=== PATIENT | female | born 1970 | race American Indian/Alaskan Native ===

== ENCOUNTER 2017-08-14 12:36 | Emergency (ER) | payer SELFPAY ==
[2017-08-14 12:51] VITALS: BP 170/88
== END 2017-08-14 14:00 | disposition left against medical advice (07) ==
LOC: ED 12:36
DX: M79.602 Pain in left arm (principal); Z53.21 Procedure and treatment not carried out due to patient leaving prior to being seen by health care provider

== ENCOUNTER 2017-08-17 16:55 | Emergency (ER) | payer BC ==
[2017-08-17 17:19] VITALS: BP 161/96
--- NOTE | 2017-08-17 17:33 | Emergency Department Report ---
Chief Complaint: Laceration/Recheck/Suture Stated Complaint: LEFT ARM PAIN Time Seen by Provider: 08/17/17 17:29 - HPI History of Present Illness: Patient here reports that she had laceration on 05/04/2015 for cut to her left wrist. She said she thinks is infected and the sutures came out without her removing it. She said the areas open. She reports that there is drainage coming from the site that has a slight odor. Left wrist pain is 7 out of 10 and throbbing per patient. She said the pain is also sharp and radiated into her hand. Denies any fever or chills. - ROS Review of Systems: All systems are negative unless stated in HPI above - Exam Vital Signs: Vital Signs 08/17/17 17:11 Temperature 98 F Pulse Rate 100 H Respiratory 18 Rate Blood Pressure 161/96 O2 Sat by Pulse 96 Oximetry Physical Exam: Gen.: This is a 47-year-old female well-nourished well-developed in no acute distress. Extremity: No clubbing or cyanosis. Swelling noted to left dorsal aspect of hand. + 2 Pulses radial and ulnar laterally. Patient with pain in opening and closing her hand, left. Tender to palpate the fingers on left hand. Skin: Noted dehisced wound to left wrist. Scant drainage noted. MSE screening note: Focused history and physical exam performed. Due to findings the following was ordered: ED Medical Decision Making - Medical Decision Making MDM: Patient screened by provider in triage area. Appropriate protocol initiated and patient to be seen in main ED by provider ED Disposition for MSE Condition: Stable
[2017-08-17 18:17] LABS: Basophils % (Auto) 1.1 % (0.0-1.8); Eosinophils % (Auto) 1.1 % (0.0-4.3); Hematocrit 38.1 % (30.3-42.9); Hemoglobin 12.4 gm/dl (10.1-14.3); Mean Corpuscular HGB Conc 33 % (30-34); Mean Corpuscular Hemoglobin 30 pg (28-32); Mean Corpuscular Volume 92 fl (79-97); Platelet Count 292 K/mm3 (140-440); Red Blood Count 4.14 M/mm3 (3.65-5.03); Red Cell Distribution Width 18.5 % (13.2-15.2); White Blood Count 6.7 K/mm3 (4.5-11.0)
--- NOTE | 2017-08-17 18:35 | Emergency Department Report ---
HPI - General Chief Complaint: Wound/Laceration Time Seen by Provider: 08/17/17 17:29 - HPI HPI: Patient is a 57-year-old female presents to ED complaining of left wrist wound infection. Patient states she was here last week Thursday on 08/08/2017 with a laceration that was repaired here. Patient states the next day 1 stitches came out and the rest of the stitches came out 5 days ago without her knowledge. Patient states since Thursday the laceration has been draining some extent. Patient states wrist pain at laceration site. She denies any other new injuries, bleeding, Fever/chills/nausea/vomiting ED Past Medical Hx - Past Medical History Hx Hypertension: No Hx Psychiatric Treatment: Yes (Depression) Additional medical history: ETOH abuse - Surgical History Past Surgical History?: No - Social History Smoking Status: Never Smoker Substance Use Type: None - Medications Home Medications: Home Medications Medication Instructions Recorded Confirmed Last Taken Type Famotidine [Pepcid] 20 mg PO BID #60 tablet 04/23/15 Unknown Rx Promethazine [Phenergan] 25 mg PO Q6H PRN #10 tablet 04/23/15 Unknown Rx traMADol [Ultram] 50 mg PO Q6HR PRN #12 tablet 04/23/15 Unknown Rx Ondansetron [Zofran Odt] 4 mg PO Q6HR PRN #20 tab.rapdis 05/04/15 Unknown Rx Ranitidine HCl [Zantac 150 MG TAB] 150 mg PO BID #60 tablet 05/04/15 Unknown Rx Cephalexin [Keflex] 500 mg PO BID #14 capsule 08/17/17 Unknown Rx Ibuprofen [Motrin 800 MG tab] 800 mg PO Q8H #20 tablet 08/17/17 Unknown Rx ED Review of Systems ROS: Stated complaint: LEFT ARM PAIN Other details as noted in HPI Constitutional: denies: chills, fever Eyes: denies: eye pain, eye discharge, vision change ENT: denies: ear pain, throat pain Respiratory: denies: cough, shortness of breath, wheezing Cardiovascular: denies: chest pain, palpitations Endocrine: no symptoms reported Gastrointestinal: denies: abdominal pain, nausea, diarrhea Genitourinary: denies: urgency, dysuria, discharge Musculoskeletal: denies: back pain, joint swelling, arthralgia Skin: denies: rash, lesions Neurological: denies: headache, weakness, paresthesias Psychiatric: denies: anxiety, depression Hematological/Lymphatic: denies: easy bleeding, easy bruising Physical Exam - Physical Exam Vital Signs: Vital Signs 08/17/17 17:11 Temperature 98 F Pulse Rate 100 H Respiratory 18 Rate Blood Pressure 161/96 O2 Sat by Pulse 96 Oximetry Physical Exam: GENERAL: Alert and oriented x3, no apparent distress, Normal Gait, atraumatic. HEAD: Head is normocephalic and a-traumatic. EYES: Extra ocular muscles are intact. Pupils are equal, round, and reactive to light and accommodation. EARS: symetrical, atraumatic, non tender, ear canal clear and moderate cerumen, tympanic membrance non inflamed. gross auditory nml bilaterally. NOSE: Nose symetrical, Nontender,Nares appeared normal. MOUTH:Mouth is well hydrated and without lesions. Tonsils nonerythematous or swollen, Uvula midline, Tongue not elevated. Mucous membranes are moist. Posterior pharynx clear, no exudate or lesions. Patent airways. NECK: Supple. Non edematous, No carotid bruits. No lymphadenopathy or thyromegaly. No C-spine tenderness LUNGS: Symetrical with respiration, No wheezing, no rales or crackles, CTAB. HEART: S1, S2 present, regular rate and rhythm without murmur, no rubs, no gallops. Non tender to palpation EXTREMITIES/MUSCULOSKELETAL: No cyanosis, clubbing, rash, lesions or edema. Full ROM bilaterally. UE Pulses 2+ bilaterally. UE 5+ strength bilaterally, left wrist 5-6 cm laceration, moderately healed NEUROLOGIC: The patient is cooperative with no focal neurologic deficits. Cranial nerves II through XII are grossly intact. Normal speech. Normal sensation in bilateral upper and lower extremities, No loss of sensation, PSYCHIATRIC: Mood is congruent with affect, denies suicidal or homicidal ideations. SKIN: Warm and dry, No lesions, No ulceration or induration present. ED Course Vital Signs 08/17/17 17:11 Temperature 98 F Pulse Rate 100 H Respiratory 18 Rate Blood Pressure 161/96 O2 Sat by Pulse 96 Oximetry ED Medical Decision Making - Lab Data Result diagrams: 08/17/17 18:00 - Medical Decision Making 47-year-old female presents with laceration of the wrist wound check ED course: Patient received clindamycin 150 mg pain Med in the ED. CBC, shows no elevated white count, test negative Discussed this findings with the patient. Discussed patient to keep wound clean and dry and should bodies applied 3 times a day. Patient's wound was cleaned, antibiotic applied and sterilely wrapped with gauze. Discussed follow-up with primary care physician in 3 days for another wound check. Discussed with the patient that if new symptoms or worsening symptoms to return to ED Critical care attestation.: If time is entered above; I have spent that time in minutes in the direct care of this critically ill patient, excluding procedure time. ED Disposition Clinical Impression: Encounter for re-check of laceration wound Disposition: DC- TO HOME OR SELFCARE Is pt being admited?: No Does the pt Need Aspirin: No Condition: Stable Instructions: Acute Wound Care (ED), Abrasion (ED) Prescriptions: Cephalexin [Keflex] 500 mg PO BID #14 capsule Ibuprofen [Motrin 800 MG tab] 800 mg PO Q8H #20 tablet Referrals: PRIMARY CAREMD [Primary Care Provider] - 3-5 Days MORENO ESTEABN MD [Referring] - 3-5 Days [facility] [Outside] - 3-5 Days [facility] [Outside] - 3-5 Days [facility] [Outside] - 3-5 Days Forms: Accompanied Note, Work/School Release Form(ED) Time of Disposition: 19:26
[2017-08-17] MEDS ORDERED: MOTRIN PO ONE (19:19)
[2017-08-17] MEDS ORDERED: CLEOCIN IM ONE (19:19)
[2017-08-17] MEDS ORDERED: TRIPLE ANTIBIOTIC TP ONE (19:27)
--- NOTE | 2017-08-17 20:25 | XRay Report ---
FINAL REPORT EXAM: XR WRIST 3+V LT HISTORY: Infection left wrist with restricted movement TECHNIQUE: Three views of the left wrist PRIORS: None. FINDINGS: The bones are normally aligned and mineralized. The joint spaces are well-preserved. There is no evidence of acute fracture. The soft tissues are unremarkable. IMPRESSION: No evidence of acute fracture or subluxation.
--- NOTE | 2017-08-17 21:33 | XRay Report ---
FINAL REPORT EXAM: XR HAND 3+V LT HISTORY: swelling and redness left hand TECHNIQUE: Three views of the left hand PRIORS: None. FINDINGS: The bones are normally aligned and mineralized. The joint spaces are well-preserved. There is no evidence of acute fracture. The soft tissues are unremarkable. IMPRESSION: No evidence of acute fracture or subluxation.
== END 2017-08-17 19:55 | disposition home or self-care (01) ==
LOC: ED 16:55
DX: S61.512D Laceration without foreign body of left wrist, subsequent encounter (principal); L08.89 Other specified local infections of the skin and subcutaneous tissue; F32.9 Major depressive disorder, single episode, unspecified
CPT/HCPCS: 36415; 84703; 85025; 96372; A6250

== ENCOUNTER 2018-05-11 15:58 | Inpatient (IN) | payer BC, OTHER ==
[2018-05-11 16:44] LABS: Basophils # (Auto) 0.1 K/mm3 (0.0-0.1); Basophils % (Auto) 1.7 % (0.0-1.8); Hematocrit 38.6 % (30.3-42.9); Hemoglobin 13.4 gm/dl (10.1-14.3); Lymphocytes # (Auto) 1.4 K/mm3 (1.2-5.4); Lymphocytes % (Auto) 30.5 % (13.4-35.0); Mean Corpuscular HGB Conc 35 % (30-34); Mean Corpuscular Hemoglobin 36 pg (28-32); Mean Corpuscular Volume 104 fl (79-97); Monocytes # (Auto) 0.6 K/mm3 (0.0-0.8); Monocytes % (Auto) 12.4 % (0.0-7.3); Platelet Count 329 K/mm3 (140-440); Red Blood Count 3.71 M/mm3 (3.65-5.03); Red Cell Distribution Width 15.6 % (13.2-15.2)
[2018-05-11 17:00] LABS: BUN/Creatinine Ratio 32; Blood Urea Nitrogen 16 mg/dL (7-17); Calcium 9.8 mg/dL (8.4-10.2); Hemolysis Index 23
[2018-05-11] MEDS ORDERED: VITAMIN B-1 100 MG, FOLVITE 1 MG, INFUVITE 10 ML in NACL 0.9% 1000 ML 1,000 ML IV ONE (21:01)
--- NOTE | 2018-05-11 21:19 | Emergency Department Report ---
HPI - General Chief Complaint: Psych Time Seen by Provider: 05/11/18 21:01 - HPI HPI: 47-year-old female presents to the emergency department from the mobile crisis unit after she called them regarding feeling sad and depressed. Patient does say that she has some "manic depression" but never has been diagnosed with bipolar disorder. She has not been on any medications for this for many years. She states that she mostly just wants to stay in bed and sleep. She does have history of some alcohol abuse and denies any heavy drinking but does have some alcohol on board at this time. She denies any illicit drugs. She denies any auditory or visual hallucinations. She denies any current suicidal or homicidal ideations. Patient has been feeling depressed because she says that there has been some problems with her residence including malfunctioning air-conditioning. She says that when she complains to the labor utilization superintendent that they still request her rent, say they are fixing it, and threatened to kick her out. More recently the patient has noticed some mold. She's been dealing with a recent cough that is mixed dry and productive. She denies any fever, chest pain, shortness of breath. She does have a medical history of hypertension. ED Past Medical Hx - Past Medical History Previous Medical History?: Yes Hx Hypertension: Yes Hx Psychiatric Treatment: Yes (Depression) Additional medical history: ETOH abuse - Social History Smoking Status: Never Smoker Substance Use Type: Alcohol - Medications Home Medications: Home Medications Medication Instructions Recorded Confirmed Last Taken Type Famotidine [Pepcid] 20 mg PO BID #60 tablet 04/23/15 05/11/18 Unknown Rx Promethazine [Phenergan] 25 mg PO Q6H PRN #10 tablet 04/23/15 05/11/18 Unknown Rx traMADol [Ultram] 50 mg PO Q6HR PRN #12 tablet 04/23/15 05/11/18 Unknown Rx Ondansetron [Zofran Odt] 4 mg PO Q6HR PRN #20 tab.rapdis 05/04/15 05/11/18 Unknown Rx Ranitidine HCl [Zantac 150 MG TAB] 150 mg PO BID #60 tablet 05/04/15 05/11/18 Unknown Rx Cephalexin [Keflex] 500 mg PO BID #14 capsule 08/17/17 05/11/18 Unknown Rx Ibuprofen [Motrin 800 MG tab] 800 mg PO Q8H #20 tablet 08/17/17 05/11/18 Unknown Rx ED Review of Systems ROS: Stated complaint: SUICIDAL Other details as noted in HPI Comment: All other systems reviewed and negative Constitutional: denies: chills, fever Eyes: denies: eye pain, eye discharge, vision change ENT: denies: ear pain, throat pain Respiratory: cough. denies: shortness of breath Cardiovascular: denies: chest pain, palpitations Gastrointestinal: denies: abdominal pain, nausea, diarrhea Genitourinary: denies: urgency, dysuria, discharge Musculoskeletal: denies: back pain, joint swelling, arthralgia Skin: denies: rash, lesions Neurological: denies: headache, weakness, paresthesias Psychiatric: depression. denies: auditory hallucinations, visual hallucinations , homicidal thoughts, suicidal thoughts Physical Exam - Physical Exam Vital Signs: Vital Signs 05/11/18 16:06 Temperature 98.7 F Pulse Rate 112 H Respiratory 16 Rate Blood Pressure 160/97 O2 Sat by Pulse 98 Oximetry Physical Exam: GENERAL: The patient is well-developed well-nourished. HENT: Normocephalic. Atraumatic. Patient has moist mucous membranes. EYES: Extraocular motions are intact. Pupils equal reactive to light bilaterally. NECK: Supple. Trachea is midline. CHEST/LUNGS: Clear to auscultation. There is no respiratory distress noted. HEART/CARDIOVASCULAR: Regular. There is mild tachycardia. There is no murmur. ABDOMEN: Abdomen is soft, nontender. Patient has normal bowel sounds. There is no abdominal distention. SKIN: Skin is warm and dry. NEURO: The patient is awake, alert, and oriented. The patient is cooperative. The patient has no focal neurologic deficits. The patient has normal speech. Patient has distal bilateral upper extremity tremors. MUSCULOSKELETAL: There is no tenderness or deformity. There is no evidence of acute injury. ED Course Vital Signs 05/11/18 16:06 Temperature 98.7 F Pulse Rate 112 H Respiratory 16 Rate Blood Pressure 160/97 O2 Sat by Pulse 98 Oximetry ED Medical Decision Making - Lab Data Result diagrams: 05/11/18 16:21 05/11/18 16:21 - Radiology Data Radiology results: image reviewed interpreted by me: Chest x-ray does not show any acute process. There are no pleural effusions, obvious pneumonia and there is no pneumothorax. - Medical Decision Making Patient came in for a mental health evaluation and she's been dealing with some depression. She does not have any hallucinations or any suicidal or homicidal ideations. She is calm and appropriate with a normal decision making capacity. She does not appear to be a candidate to be made a 1013 for inpatient psychiatric treatment. She was seen by the psych assessment team who agrees and has provided outpatient resources regarding her psychiatric care. However the patient did have an alcohol level of 0.014 at about 6 PM this evening. She does have some history of alcohol abuse and admits that she has been drinking over the past few weeks since "my depression worsened." Patient had some mild tachycardia upon presentation and despite getting some IV fluid and a banana bag the tachycardia increased. Patient started having some distal bilateral upper extremity tremors. At this point the alcohol withdrawal assessment was placed on the patient and she had a score of 16, requiring 4 mg of Ativan. For this reason, with concern for moderate alcohol withdrawal, the patient will be admitted to the hospital for further evaluation and treatment and was accepted for admission by the hospitalist, Dr. Bernabe. - Differential Diagnosis alcohol withdrawal, depression, bipolar disorder, anxiety Critical Care Time: No Critical care attestation.: If time is entered above; I have spent that time in minutes in the direct care of this critically ill patient, excluding procedure time. ED Disposition Clinical Impression: Hypertension Qualifiers: Hypertension type: essential hypertension Qualified Code(s): I10 - Essential ( primary) hypertension Alcohol withdrawal Qualifiers: Complication of substance-induced condition: with unspecified complication Qualified Code(s): F10.239 - Alcohol dependence with withdrawal, unspecified Depression Qualifiers: Depression Type: unspecified Qualified Code(s): F32.9 - Major depressive disorder, single episode, unspecified Disposition: 09 OP ADMIT IP TO THIS HOSP Is pt being admited?: Yes Condition: Stable Instructions: Hypertension (ED) Referrals: PRIMARY CARE, [Primary Care Provider] - 3-5 Days Time of Disposition: 00:54
--- NOTE | 2018-05-11 21:46 | XRay Report ---
FINAL REPORT PROCEDURE: XR CHEST ROUTINE 2V TECHNIQUE: PA and lateral chest radiographs were obtained. CPT 58080 HISTORY: cough COMPARISON: No prior studies are available for comparison. FINDINGS: Heart: Normal. Mediastinum/Vessels: Normal. Lungs/Pleural space: There is mild elevation of right hemidiaphragm.. Bony thorax: No acute osseous abnormality. Other: IMPRESSION: No acute pulmonary process..
[2018-05-11] MEDS ORDERED: ZOFRAN ONE (22:02)
[2018-05-11] MEDS ORDERED: ZOFRAN IV ONE (22:12)
[2018-05-11 23:16] LABS: Bacteria,Urine 1+ /HPF (Negative); Bilirubin,Urine NEG (Negative); Blood,Urine NEG (Negative); Color,Urine Amber (Yellow); Hyaline Casts,Urine 3 /LPF; Mucus,Urine 3+ /HPF
[2018-05-11 23:23] LABS: Amphetamine Screen,Urine PRESUMPTIVE NEGATIVE; Benzodiazepines Screen,Urine PRESUMPTIVE NEGATIVE; Cannabinoid Screen,Urine PRESUMPTIVE NEGATIVE; Cocaine Screen,Urine PRESUMPTIVE NEGATIVE; Methadone Screen,Urine PRESUMPTIVE NEGATIVE; Opiate Screen,Urine PRESUMPTIVE NEGATIVE
[2018-05-12] MEDS ORDERED: ATIVAN PO PRN (00:13)
[2018-05-12] MEDS ORDERED: ATIVAN IV PRN (00:13)
[2018-05-12] MEDS ORDERED: SODIUM CHLORIDE FLUSH SYRINGE 10 ML IV PRN (00:48)
[2018-05-12] MEDS ORDERED: TYLENOL PO PRN (00:48)
--- NOTE | 2018-05-12 00:52 | History and Physical Report ---
History of Present Illness Date of examination: 05/12/18 History of present illness: 47-year-old man with a no medical history comes to the emergency room complaining of feeling sad and depressed. Patient has been having problems where she lives. She stated that they don't treat her right, her if condition doesn't work, she complains about 8 and a threatened to evict her. Although last week she has been drinking heavily, she stopped working. She has no homicidal or suicidal ideation. In the emergency room she was found to be in withdrawal from alcohol Review of systems Constitutional: no weight loss, chills, fever Ears, eyes, nose, mouth and throat: no nasal congestion, no nasal discharge, no sinus pressure, no vision change, no red eye. Neck: No neck pain or rigidity. Cardiovascular: no chest pain, palpitations Respiratory: no cough,shortness of breath Gastrointestinal: no abdominal pain hematochezia Genitourinary : no frequency , no hematuria Musculoskeletal: no joint swelling or muscle ache Integumentary: no rash, no pruritis Neurological: no parathesias, no numbness, no focal weakness Endocrine: no cold or heat intolerance, no polyuria or polydipsia Hematologic/Lymphatic: no easy bruising, no easy bleeding, no gland swelling Allergic/Immunologic: no urticaria, no angioedema. PAST MEDICAL HISTORY: Depression, hypertension PAST SURGICAL HISTORY: None SOCIAL HISTORY: No drugs, tobacco, drinks alot of alcohol FAMILY HISTORY: Hypertension Medications and Allergies Allergies Allergy/AdvReac Type Severity Reaction Status Date / Time No Known Allergies Allergy Verified 05/11/18 16:06 Home Medications Medication Instructions Recorded Confirmed Last Taken Type Famotidine [Pepcid] 20 mg PO BID #60 tablet 04/23/15 05/11/18 Unknown Rx Promethazine [Phenergan] 25 mg PO Q6H PRN #10 tablet 04/23/15 05/11/18 Unknown Rx traMADol [Ultram] 50 mg PO Q6HR PRN #12 tablet 04/23/15 05/11/18 Unknown Rx Ondansetron [Zofran Odt] 4 mg PO Q6HR PRN #20 tab.rapdis 05/04/15 05/11/18 Unknown Rx Ranitidine HCl [Zantac 150 MG TAB] 150 mg PO BID #60 tablet 05/04/15 05/11/18 Unknown Rx Cephalexin [Keflex] 500 mg PO BID #14 capsule 08/17/17 05/11/18 Unknown Rx Ibuprofen [Motrin 800 MG tab] 800 mg PO Q8H #20 tablet 08/17/17 05/11/18 Unknown Rx Active Meds: Active Medications Thiamine HCl 100 mg/ Folic Acid 1 mg/ Multivitamins/Minerals 10 ml/ Sodium Chloride 1,011.2 mls @ 250 mls/hr IV ONCE ONE Stop: 05/12/18 01:03 Last Admin: 05/11/18 22:00 Dose: 250 mls/hr Lorazepam (Ativan) 2 mg PO Q1HR PRN PRN Reason: CIWA-Ar 8-15 Lorazepam (Ativan) 4 mg PO Q1HR PRN PRN Reason: CIWA-Ar 16-25 Lorazepam (Ativan) 4 mg IV Q15MIN PRN PRN Reason: CIWA-Ar >25 Exam - Physical Exam Narrative exam: Gen. appearance: Patient lying in bed, no apparent distress HEENT: Normocephalic, atraumatic, pupils equally round and reactive to light, extraocular movement intact, and no sclericterus,. No JVD or thyromegaly or nodule,neck supple, no carotid bruit ,mucous membranes moist, no exudate or erythema Heart: S1, S2, regular rate and rhythm Lungs: Clear to auscultation bilaterally, breathing comfortable Abdomen: Positive bowel sounds, non tenderness , nondistended, no organomegaly Extremity: No edema, cyanosis, clubbing Skin: No rash, nodules, warm, dry Neuro: Oriented 3, cranial nerves II-12 intact, speech is fluent, motor and sensory intact - Constitutional Vitals: Temp Pulse Resp BP Pulse Ox 98 F 133 H 24 156/96 99 05/11/18 23:22 05/11/18 23:22 05/11/18 23:22 05/11/18 23:22 05/11/18 23:22 Results - Labs CBC & Chem 7: 05/11/18 16:21 05/11/18 16:21 Labs: Abnormal lab results 05/11/18 05/11/18 05/11/18 Range/Units 16:21 16:21 16:21 MCV (79-97) fl MCH (28-32) pg MCHC (30-34) % RDW (13.2-15.2) % [place] % (Auto) (0.0-7.3) % Carbon Dioxide 19 L (22-30) mmol/L Creatinine 0.5 L (0.7-1.2) mg/dL Ur Specific [place] (1.003-1.030) U Epithel Cells (Auto) (0-13.0) /HPF Salicylates < 0.3 L (2.8-20.0) mg/dL Acetaminophen < 5.0 L (10.0-30.0) ug/mL Plasma/Serum Alcohol (0-0.07) % 05/11/18 05/11/18 05/11/18 Range/Units 16:21 16:21 21:12 MCV 104 H (79-97) fl MCH 36 H (28-32) pg MCHC 35 H (30-34) % RDW 15.6 H (13.2-15.2) % [place] % (Auto) 12.4 H (0.0-7.3) % Carbon Dioxide (22-30) mmol/L Creatinine (0.7-1.2) mg/dL Ur Specific [place] 1.031 H (1.003-1.030) U Epithel Cells (Auto) 21.0 H (0-13.0) /HPF Salicylates (2.8-20.0) mg/dL Acetaminophen (10.0-30.0) ug/mL Plasma/Serum Alcohol 0.12 H (0-0.07) % - Imaging and Cardiology Chest x-ray: report reviewed Assessment and Plan Assessment Alcohol withdrawal Depression Hypertension Plan Admit to medicine Start [facility] protocol with IV ativan, tjiamine, folate Consult psych DVT prophalaxis
--- NOTE | 2018-05-12 10:03 | Progress Note ---
Assessment and Plan Alcohol withdrawal Depression Hypertension Plan Start [facility] protocol with IV ativan, tjiamine, folate Consult psych DVT prophalaxis Subjective Date of service: 05/12/18 Principal diagnosis: alcohol withdrawal Interval history: Patient seen and examined. No chest pain or shortness of breath. No alteration in mental status. No overnight event reported. Objective - Exam Narrative Exam: Constitutional: Well-nourished well-developed. In no distress Head: Normocephalic atraumatic Eyes: Pupils are equal round and reactive to light Nose: No enlarged turbinates, no septal deviation. Mouth: Moist mucous membranes. Neck: Supple no thyromegaly. No bruit. No JVD Heart: Regular rate and rhythm, S1-S2 abnormal. No rubs murmurs or gallop Lungs: Clear to auscultation bilaterally no rales or rhonchi Abdomen: Soft, nontender. Bowel sound are present. Extremities: No edema no cyanosis and no clubbing. Neuro: Alert oriented Oriented x3. No focal sensory or motor deficit. Skin: No rashes no hyperemic spots Psychiatry: Euthymic. Calm. - Constitutional Vitals: Vital Signs - 12hr 05/11/18 05/11/18 05/11/18 22:47 22:49 23:22 Temperature 98.8 F 98.0 F 98 F Pulse Rate 132 H 133 H Respiratory 24 16 24 Rate Blood Pressure 154/96 134/65 Blood Pressure 156/96 [Right] O2 Sat by Pulse 99 99 Oximetry 05/12/18 05/12/18 05/12/18 01:14 02:44 02:45 Temperature Pulse Rate 115 H 120 H Respiratory 13 15 Rate Blood Pressure Blood Pressure 150/96 [Right] O2 Sat by Pulse Oximetry 05/12/18 05/12/18 05/12/18 02:52 03:00 03:16 Temperature Pulse Rate 117 H 116 H 117 H Respiratory 18 22 20 Rate Blood Pressure Blood Pressure 146/90 [Right] O2 Sat by Pulse Oximetry 05/12/18 05/12/18 05/12/18 03:30 03:46 04:00 Temperature Pulse Rate 115 H 115 H 112 H Respiratory 19 20 25 H Rate Blood Pressure Blood Pressure [Right] O2 Sat by Pulse Oximetry 05/12/18 05/12/18 05/12/18 04:16 04:30 04:46 Temperature Pulse Rate 104 H 108 H 103 H Respiratory 20 22 19 Rate Blood Pressure Blood Pressure [Right] O2 Sat by Pulse Oximetry 05/12/18 05/12/18 05/12/18 05:00 05:16 05:30 Temperature Pulse Rate 102 H 103 H 101 H Respiratory 20 19 18 Rate Blood Pressure Blood Pressure [Right] O2 Sat by Pulse Oximetry 05/12/18 05/12/18 05/12/18 05:46 06:00 06:16 Temperature Pulse Rate 103 H 102 H 104 H Respiratory 16 17 16 Rate Blood Pressure Blood Pressure [Right] O2 Sat by Pulse Oximetry 05/12/18 05/12/18 05/12/18 06:30 06:46 07:00 Temperature Pulse Rate 101 H 104 H 98 H Respiratory 19 20 16 Rate Blood Pressure Blood Pressure [Right] O2 Sat by Pulse Oximetry 05/12/18 05/12/18 05/12/18 07:10 07:16 07:30 Temperature 98.2 F Pulse Rate 91 H 101 H 97 H Respiratory 20 17 17 Rate Blood Pressure Blood Pressure 129/81 [Right] O2 Sat by Pulse 100 Oximetry 05/12/18 05/12/18 05/12/18 07:46 08:06 08:16 Temperature Pulse Rate 104 H 116 H 97 H Respiratory 18 21 17 Rate Blood Pressure Blood Pressure [Right] O2 Sat by Pulse Oximetry 05/12/18 08:30 Temperature Pulse Rate 95 H Respiratory 15 Rate Blood Pressure Blood Pressure [Right] O2 Sat by Pulse Oximetry - Labs CBC & Chem 7: 05/11/18 16:21 05/11/18 16:21 Labs: Abnormal lab results 05/11/18 05/11/18 05/11/18 Range/Units 16:21 16:21 16:21 MCV (79-97) fl MCH (28-32) pg MCHC (30-34) % RDW (13.2-15.2) % [place] % (Auto) (0.0-7.3) % Carbon Dioxide 19 L (22-30) mmol/L Creatinine 0.5 L (0.7-1.2) mg/dL Ur Specific [place] (1.003-1.030) U Epithel Cells (Auto) (0-13.0) /HPF Salicylates < 0.3 L (2.8-20.0) mg/dL Acetaminophen < 5.0 L (10.0-30.0) ug/mL Plasma/Serum Alcohol (0-0.07) % 05/11/18 05/11/18 05/11/18 Range/Units 16:21 16:21 21:12 MCV 104 H (79-97) fl MCH 36 H (28-32) pg MCHC 35 H (30-34) % RDW 15.6 H (13.2-15.2) % [place] % (Auto) 12.4 H (0.0-7.3) % Carbon Dioxide (22-30) mmol/L Creatinine (0.7-1.2) mg/dL Ur Specific [place] 1.031 H (1.003-1.030) U Epithel Cells (Auto) 21.0 H (0-13.0) /HPF Salicylates (2.8-20.0) mg/dL Acetaminophen (10.0-30.0) ug/mL Plasma/Serum Alcohol 0.12 H (0-0.07) %
[2018-05-12] MEDS: FOLVITE PO SCH (11:58)
[2018-05-12] MEDS: VITAMIN B-1 PO SCH (11:59)
[2018-05-12] MEDS: LOVENOX SUB-Q SCH (11:59)
[2018-05-12] MEDS: SODIUM CHLORIDE FLUSH SYRINGE 10 ML IV SCH ×2 (12:00→23:43)
[2018-05-12] MEDS ORDERED: NON-FORMULARY (Lisinopril 40 MG) PO SCH (20:30)
[2018-05-12] MEDS: ZESTRIL PO SCH (23:37)
[2018-05-12] MEDS: ATIVAN PO PRN (23:39)
[2018-05-13 06:50] LABS: Basophils % (Auto) 0.6 % (0.0-1.8); Eosinophils % (Auto) 1.3 % (0.0-4.3); Hematocrit 38.4 % (30.3-42.9); Hemoglobin 12.8 gm/dl (10.1-14.3); Lymphocytes # (Auto) 1.4 K/mm3 (1.2-5.4); Mean Corpuscular HGB Conc 33 % (30-34); Mean Corpuscular Hemoglobin 35 pg (28-32); Mean Corpuscular Volume 106 fl (79-97); Monocytes # (Auto) 0.3 K/mm3 (0.0-0.8); Monocytes % (Auto) 10.1 % (0.0-7.3); Platelet Count 214 K/mm3 (140-440); Red Blood Count 3.61 M/mm3 (3.65-5.03); Red Cell Distribution Width 15.4 % (13.2-15.2)
[2018-05-13 07:11] LABS: BUN/Creatinine Ratio 28; Blood Urea Nitrogen 11 mg/dL (7-17); Calcium 9.3 mg/dL (8.4-10.2); Hemolysis Index 6
--- NOTE | 2018-05-13 10:47 | Progress Note ---
Assessment and Plan Alcohol withdrawal [facility] protocol, IV ativan, thiamin and folate. Psych input appreciated Depression Psych input appreciated, SSRI Hypertension Optimize control with antihypertensive meds Hypomagnesemia-secondary to alcohol abuse -Will correct Hypokalemia secondary to hypomagnesemia from ETOH abuse Will replete Mg and K and monitor DVT prophylaxis with Lovenox Subjective Date of service: 05/13/18 Principal diagnosis: alcohol withdrawal Interval history: Patient seen and examined. No complaints. No overnight events. Laboratory tests reviewed. Objective - Constitutional Vitals: Vital Signs - 12hr 05/12/18 05/12/18 05/13/18 23:28 23:37 05:35 Temperature 98.7 F 98.3 F Pulse Rate 98 H 101 H 86 Respiratory 22 20 Rate Blood Pressure 176/88 176/88 149/91 O2 Sat by Pulse 96 100 Oximetry General appearance: Present: no acute distress, well-nourished - EENT Eyes: PERRL, EOM intact ENT: hearing intact, clear oral mucosa Ears: bilateral: normal - Neck Neck: supple, normal ROM - Respiratory Respiratory effort: normal Respiratory: bilateral: CTA - Breasts Breasts: deferred - Cardiovascular Rhythm: regular Heart Sounds: Present: S1 & S2. Absent: gallop, rub Extremities: pulses intact, No edema, normal color, Full ROM - Gastrointestinal General gastrointestinal: Present: soft, non-tender, non-distended, normal bowel sounds - Genitourinary Female genitourinary: deferred - Integumentary Integumentary: clear, warm, dry - Musculoskeletal Musculoskeletal: strength equal bilaterally - Neurologic Neurologic: moves all extremities - Psychiatric Psychiatric: appropriate mood/affect, cooperative - Labs CBC & Chem 7: 05/13/18 05:23 05/13/18 05:23 Labs: Abnormal lab results 05/13/18 05/13/18 Range/Units 05:23 05:23 WBC 3.2 L (4.5-11.0) K/mm3 RBC 3.61 L (3.65-5.03) M/mm3 MCV 106 H (79-97) fl MCH 35 H (28-32) pg RDW 15.4 H (13.2-15.2) % Lymph % (Auto) 42.0 H (13.4-35.0) % [place] % (Auto) 10.1 H (0.0-7.3) % Seg Neutrophils # 1.5 L (1.8-7.7) K/mm3 Potassium 3.2 L D (3.6-5.0) mmol/L Creatinine 0.4 L (0.7-1.2) mg/dL Magnesium 1.50 L (1.7-2.3) mg/dL
[2018-05-13] MEDS ORDERED: MAGNESIUM SULFATE 2GM/50ML 2 GM/50 ML BAG IV ONE (11:09)
[2018-05-13] MEDS ORDERED: MAGNESIUM SULFATE 2 GM in NACL 0.9% 50 ML IV ONE (12:00)
[2018-05-13] MEDS ORDERED: KCL 10MEQ/100ML 10 MEQ/100 ML BAG IV SCH (12:00)
--- NOTE | 2018-05-13 12:39 | Consultation ---
History of Present Illness - Reason for Consult Consult date: 05/13/18 Reason for consult: Mental Health Evaluation Requesting physician: FREDDY WESTON - Chief Complaint Chief complaint: "I do drink" - History of Present Psychiatric Illness 47-year-old female presents to the emergency department from the mobile crisis unit after she called them regarding feeling sad and depressed. Today the patient is calm, but confused during the assessment. She stated that her "biggest problem" is drinking (etoh). She stated drinking since age of "18 or so." She could not answer questions logically about being depressed or being dx with another Mood DO. She spoke briefly about some issue she is having at her residence. She did state that her drinking has increased the past few months. She denies SI/HI's and AVH's. She denies recreational drugs. Medications and Allergies Allergies Allergy/AdvReac Type Severity Reaction Status Date / Time No Known Allergies Allergy Verified 05/11/18 16:06 Home Medications Medication Instructions Recorded Confirmed Last Taken Type Famotidine [Pepcid] 20 mg PO BID #60 tablet 04/23/15 05/11/18 Unknown Rx Promethazine [Phenergan] 25 mg PO Q6H PRN #10 tablet 04/23/15 05/11/18 Unknown Rx traMADol [Ultram] 50 mg PO Q6HR PRN #12 tablet 04/23/15 05/11/18 Unknown Rx Ondansetron [Zofran Odt] 4 mg PO Q6HR PRN #20 tab.rapdis 05/04/15 05/11/18 Unknown Rx Ranitidine HCl [Zantac 150 MG TAB] 150 mg PO BID #60 tablet 05/04/15 05/11/18 Unknown Rx Cephalexin [Keflex] 500 mg PO BID #14 capsule 08/17/17 05/11/18 Unknown Rx Ibuprofen [Motrin 800 MG tab] 800 mg PO Q8H #20 tablet 08/17/17 05/11/18 Unknown Rx Lisinopril 10 mg PO DAILY MDD 10 mg 05/12/18 05/12/18 04/25/18 History 10 mg Active Meds: Active Medications Acetaminophen (Tylenol) 650 mg PO Q4H PRN PRN Reason: Pain MILD(1-3)/Fever >100.5/[place] Enoxaparin Sodium (Lovenox) 40 mg SUB-Q QDAY [facility] Last Admin: 05/12/18 11:59 Dose: 40 mg Folic Acid (Folvite) 1 mg PO QDAY [facility] Last Admin: 05/12/18 11:58 Dose: 1 mg Potassium Chloride (Kcl 10meq/100ml) 10 meq in 100 mls @ 100 mls/hr IV Q1H [facility] Stop: 05/13/18 15:59 Magnesium Sulfate 2 gm/ Sodium (Chloride) 54 mls @ 25 mls/hr IV ONCE ONE Stop: 05/13/18 14:09 Lisinopril (Zestril) 40 mg PO QDAY [facility] Last Admin: 05/12/18 23:37 Dose: 40 mg Lorazepam (Ativan) 2 mg PO Q1HR PRN PRN Reason: CIWA-Ar 8-15 Last Admin: 05/12/18 23:39 Dose: 2 mg Lorazepam (Ativan) 4 mg PO Q1HR PRN PRN Reason: ANDRESWA-Ar 16-25 Ondansetron HCl (Zofran) 4 mg IV Q4H PRN PRN Reason: Nausea And Vomiting Sodium Chloride (Sodium Chloride Flush Syringe 10 Ml) 10 ml IV BID [facility] Last Admin: 05/12/18 23:43 Dose: 10 ml Sodium Chloride (Sodium Chloride Flush Syringe 10 Ml) 10 ml IV PRN PRN PRN Reason: LINE FLUSH Thiamine HCl (Vitamin B-1) 100 mg PO DAILY [facility] Last Admin: 05/12/18 11:59 Dose: 100 mg Past psychiatric history - Past Medical History Past Medical History: hypertension Past Surgical History: No surgical history - past Psychiatric treatment and history psychiatric treatment history: Possible hx of depression per the patient. She denies a fam psy hx. - Social History Social history: Lives alone Mental Status Exam - Vital signs Last Vital Signs Temp 98.3 F 05/13/18 05:35 Pulse 86 05/13/18 05:35 Resp 20 05/13/18 05:35 BP 149/91 05/13/18 05:35 Pulse Ox 100 05/13/18 05:35 - Exam Narrative exam: MSE: Appearance: calm, cooperative Behavior: regular eye contact Speech: regular rate and tone Mood: "okay" Affect: flat Thought Process: circumstantial Thought Content: denies SI/HI's and AVH's Motor Activity: sitting up in bed Cognition: A/O x 2, with some confusion Insight: variable Judgment: variable Results Result Diagrams: 05/13/18 05:23 05/13/18 05:23 Abnormal lab results 05/13/18 05/13/18 Range/Units 05:23 05:23 WBC 3.2 L (4.5-11.0) K/mm3 RBC 3.61 L (3.65-5.03) M/mm3 MCV 106 H (79-97) fl MCH 35 H (28-32) pg RDW 15.4 H (13.2-15.2) % Lymph % (Auto) 42.0 H (13.4-35.0) % [place] % (Auto) 10.1 H (0.0-7.3) % Seg Neutrophils # 1.5 L (1.8-7.7) K/mm3 Potassium 3.2 L D (3.6-5.0) mmol/L Creatinine 0.4 L (0.7-1.2) mg/dL Magnesium 1.50 L (1.7-2.3) mg/dL All other labs normal. Assessment and Plan Assessment and plan: Impression: Alcohol Use DO. Alcohol Intoxication on admission. Today the patient is calm, but confused during the assessment. Mild tremors noted (etoh). DDx: R/O Mood DO Recommendation/Plan: Use Ativan per [facility] protocol only. Reassess patient in 24 hours. Recommend Delirium Precautions below: 1. Frequently reorient patient and involve him/her in their care (simple explanations of procedures, tests, medications). 2. Lights on and shades open during daytime hours. 3. Write date and goals of care in a visible place. 4. Try to avoid unnecessary interruptions to sleep during nighttime hours. 5. Obtain glasses, hearing aids from home if patient uses these at baseline. 6. Avoid medications that may exacerbate delirium (especially narcotics, benzodiazepines, barbiturates, ambien, lunesta, and medications with excessive anticholinergic properties).
[2018-05-13] MEDS: ZESTRIL PO SCH (12:55)
[2018-05-13] MEDS: LOVENOX SUB-Q SCH (12:55)
[2018-05-13] MEDS: VITAMIN B-1 PO SCH (12:56)
[2018-05-13] MEDS: FOLVITE PO SCH (12:57)
[2018-05-13] MEDS: ZOFRAN IV PRN (13:09)
[2018-05-13] MEDS: SODIUM CHLORIDE FLUSH SYRINGE 10 ML IV SCH ×2 (13:49→21:07)
[2018-05-13] MEDS: K-DUR PO SCH ×3 (17:44→22:59)
[2018-05-13] MEDS ORDERED: APRESOLINE IV ONE ×2 (23:38→23:39)
[2018-05-13] MEDS ORDERED: APRESOLINE IV PRN (23:43)
[2018-05-14] MEDS: ATIVAN PO PRN (00:53)
[2018-05-14] MEDS ORDERED: DEEP SEA NS PRN (05:17)
[2018-05-14] MEDS: ZOFRAN IV PRN (05:27)
[2018-05-14 08:38] LABS: Basophils % (Auto) 0.5 % (0.0-1.8); Eosinophils # (Auto) 0.1 K/mm3 (0.0-0.4); Eosinophils % (Auto) 2.5 % (0.0-4.3); Hematocrit 39.5 % (30.3-42.9); Lymphocytes # (Auto) 1.4 K/mm3 (1.2-5.4); Lymphocytes % (Auto) 40.6 % (13.4-35.0); Mean Corpuscular HGB Conc 33 % (30-34); Mean Corpuscular Hemoglobin 36 pg (28-32); Mean Corpuscular Volume 108 fl (79-97); Monocytes # (Auto) 0.5 K/mm3 (0.0-0.8); Monocytes % (Auto) 14.2 % (0.0-7.3); Platelet Count 227 K/mm3 (140-440); Red Blood Count 3.67 M/mm3 (3.65-5.03)
[2018-05-14 08:50] LABS: Alanine Aminotransferase 88 units/L (7-56); Albumin 3.6 g/dL (3.9-5); BUN/Creatinine Ratio 20; Blood Urea Nitrogen 8 mg/dL (7-17); Calcium 9.5 mg/dL (8.4-10.2); Hemolysis Index 85
[2018-05-14] MEDS: ZESTRIL PO SCH (11:12)
[2018-05-14] MEDS: VITAMIN B-1 PO SCH (11:12)
[2018-05-14] MEDS: LOVENOX SUB-Q SCH (11:12)
[2018-05-14] MEDS: FOLVITE PO SCH (11:13)
[2018-05-14] MEDS: SODIUM CHLORIDE FLUSH SYRINGE 10 ML IV SCH ×2 (11:14→22:46)
--- NOTE | 2018-05-14 12:42 | Progress Note ---
Subjective - Reason for Consult Consult date: 05/14/18 Reason for consult: Psychiatry Follow-up - Chief Complaint Chief complaint: "I've been depressed lately" 47-year-old female presents to the emergency department from the mobile crisis unit after she called them regarding feeling sad and depressed. Today the patient is calm and cooperative during the assessment. She stated a hx of depression and took medication in the past. She stated that she have not taking medications or seen a psychiatrist in "a while." She stated that her appetite and sleep have been "off." She stated that her depression has been exacerbated because of her current living arrangement. She stated that she resides at a extended hotel and they do not fix things on time. She stated that this has been an issue, so she has increased her alcohol consumption (etoh) to self medicate (depression). She stated that she is consuming alcohol 3 to 4 days a week. She stated that she may need some assistance with somewhere to stay once discharged. She rate her depression 5/10, with 10 being the worse. She stated that she is willing to seek help for her alcoholism and depression. She denies SI/HI's and AVH's. Mental Status Exam - Vital signs Last Vital Signs Temp 98.1 F 05/14/18 04:57 Pulse 99 H 05/14/18 04:57 Resp 17 05/14/18 04:57 BP 124/81 05/14/18 04:57 Pulse Ox 99 05/14/18 04:57 - Exam Narrative exam: MSE: Appearance: calm, cooperative Behavior: regular eye contact Speech: regular rate and tone Mood: "okay" Affect: congruent to mood Thought Process: logical Thought Content: denies SI/HI's and AVH's Motor Activity: sitting up in bed Cognition: A/O x 3 Insight: fair Judgment: fair Assessment and Plan Impression: MDD. Alcohol Use DO. Alcohol Intoxication on admission. Today the patient is calm and cooperative during the assessment. No acute withdrawals noted (etoh). DDx: R/O Mood DO Recommendation/Plan: Reassess the need for the CIWA protocol. If the CIWA protocol is indicated recommend PO Ativan. Start Remeron 15 mg PO HS for depression. Discussed possible suicidality/medication induced cynthia with patient reference Remeron. Discussed the importance to abstain from alcohol consumption (etoh). The patient can follow up with [facility] for outpatient psy/rehab services. Case Mgmt involvement, the patient may need assistance with placement. Psychiatry sign off.
--- NOTE | 2018-05-14 19:14 | Progress Note ---
Assessment and Plan Assessment and plan: --Alcohol withdrawal; symptoms significantly improved On CIWA protocol, supportive care, physical therapy ambulate as tolerated --Depression;Management per psych, denies suicidal thoughts or ideation --Cough and congestion;Probably acute bronchitis, advised antihistamines, cough medicine and supportive care --Hypertension; Moderate controlled, continue current antihypertensives and when necessary medications --Hypomagnesemia; replace per protocol and monitor levels --Hypokalemia; replenishment protocol and monitor levels Closely monitor electrolytes --DVT prophylaxis with Lovenox Ambulate as tolerated Discharge planning ; case management ; Patient also has multiple social issues, unable to have a safe discharge plan in view of Alcohol withdrawal symptoms and dizziness, patient needed a family member or friend to pick her up upon discharge Patient reports she has no place to go Case management setting up residential placement Possible discharge to residential tomorrow if stable Plan of care reviewed with the patient, her nurse and the case management History Interval history: Patient seen and examined medical records reviewed 47-year-old female patient was admitted with feeling sad and depressed and some social issues, and alcohol withdrawal problems Patient was placed on CIWA protocol, has been lethargic and drowsy since morning When I evaluated the patient, patient is responding appropriately to simple questions Alert and awake, Complaints of some cough and congestion. Vital signs reviewed Hospitalist Physical - Constitutional Vitals: Temp Pulse Resp BP Pulse Ox 98.2 F 124 H 19 181/94 96 05/14/18 17:40 05/14/18 17:40 05/14/18 17:40 05/14/18 17:40 05/14/18 17:40 General appearance: Present: no acute distress, well-nourished, other (drowsy at times, on CIWA protocol) - EENT Eyes: Present: PERRL, EOM intact - Neck Neck: Present: supple, normal ROM - Respiratory Respiratory effort: normal Respiratory: bilateral: diminished, negative: rales, rhonchi, wheezing - Cardiovascular Rhythm: regular Heart Sounds: Present: S1 & S2 - Extremities Extremities: no ischemia, No edema - Abdominal General gastrointestinal: soft, non-tender, non-distended, normal bowel sounds - Integumentary Integumentary: Present: clear - Psychiatric Psychiatric: appropriate mood/affect, cooperative, other (drowsy at times) - Neurologic Neurologic: moves all extremities Results - Labs CBC & Chem 7: 05/15/18 06:12 05/15/18 06:12 Labs: Laboratory Last Values WBC 3.5 K/mm3 (4.5-11.0) L 05/14/18 07:53 RBC 3.67 M/mm3 (3.65-5.03) 05/14/18 07:53 Hgb 13.0 gm/dl (10.1-14.3) 05/14/18 07:53 Hct 39.5 % (30.3-42.9) 05/14/18 07:53 MCV 108 fl (79-97) H 05/14/18 07:53 MCH 36 pg (28-32) H 05/14/18 07:53 MCHC 33 % (30-34) 05/14/18 07:53 RDW 16.0 % (13.2-15.2) H 05/14/18 07:53 Plt Count 227 K/mm3 (140-440) 05/14/18 07:53 Lymph % (Auto) 40.6 % (13.4-35.0) H 05/14/18 07:53 [place] % (Auto) 14.2 % (0.0-7.3) H 05/14/18 07:53 Eos % (Auto) 2.5 % (0.0-4.3) 05/14/18 07:53 Baso % (Auto) 0.5 % (0.0-1.8) 05/14/18 07:53 Lymph # 1.4 K/mm3 (1.2-5.4) 05/14/18 07:53 [place] # 0.5 K/mm3 (0.0-0.8) 05/14/18 07:53 Eos # 0.1 K/mm3 (0.0-0.4) 05/14/18 07:53 Baso # 0.0 K/mm3 (0.0-0.1) 05/14/18 07:53 Seg Neutrophils % 42.2 % (40.0-70.0) 05/14/18 07:53 Seg Neutrophils # 1.5 K/mm3 (1.8-7.7) L 05/14/18 07:53 Sodium 140 mmol/L (137-145) 05/14/18 07:53 Potassium 5.5 mmol/L (3.6-5.0) H D 05/14/18 07:53 Chloride 102.9 mmol/L (98-107) 05/14/18 07:53 Carbon Dioxide 28 mmol/L (22-30) 05/14/18 07:53 Anion Gap 15 mmol/L 05/14/18 07:53 BUN 8 mg/dL (7-17) 05/14/18 07:53 Creatinine 0.4 mg/dL (0.7-1.2) L 05/14/18 07:53 Estimated GFR > 60 ml/min 05/14/18 07:53 BUN/Creatinine Ratio 20 % 05/14/18 07:53 Glucose 98 mg/dL (65-100) 05/14/18 07:53 Calcium 9.5 mg/dL (8.4-10.2) 05/14/18 07:53 Phosphorus 2.90 mg/dL (2.5-4.5) 05/13/18 05:23 Magnesium 1.30 mg/dL (1.7-2.3) L 05/13/18 13:34 Total Bilirubin 0.40 mg/dL (0.1-1.2) 05/14/18 07:53 AST 81 units/L (5-40) H 05/14/18 07:53 ALT 88 units/L (7-56) H 05/14/18 07:53 Alkaline Phosphatase 68 units/L (35-129) 05/14/18 07:53 Total Protein 6.6 g/dL (6.3-8.2) 05/14/18 07:53 Albumin 3.6 g/dL (3.9-5) L 05/14/18 07:53 Albumin/Globulin Ratio 1.2 % 05/14/18 07:53 HCG, Qual Negative (Negative) 05/11/18 16:21 Urine Color [place] (Yellow) 05/11/18 21:12 Urine Turbidity Clear (Clear) 05/11/18 21:12 Urine pH 5.0 (5.0-7.0) 05/11/18 21:12 Ur Specific [place] 1.031 (1.003-1.030) H 05/11/18 21:12 Urine Protein 100 mg/dl mg/dL (Negative) 05/11/18 21:12 Urine Glucose (UA) Neg mg/dL (Negative) 05/11/18 21:12 Urine Ketones 20 mg/dL (Negative) 05/11/18 21:12 Urine Blood Neg (Negative) 05/11/18 21:12 Urine Nitrite Neg (Negative) 05/11/18 21:12 Urine Bilirubin Neg (Negative) 05/11/18 21:12 Urine Urobilinogen 2.0 mg/dL (<2.0) 05/11/18 21:12 Ur Leukocyte Esterase Neg (Negative) 05/11/18 21:12 Urine WBC (Auto) 2.0 /HPF (0.0-6.0) 05/11/18 21:12 Urine RBC (Auto) 5.0 /HPF (0.0-6.0) 05/11/18 21:12 U Epithel Cells (Auto) 21.0 /HPF (0-13.0) H 05/11/18 21:12 Urine Bacteria (Auto) 1+ /HPF (Negative) 05/11/18 21:12 Hyaline Casts 3 /LPF 05/11/18 21:12 Urine Mucus 3+ /HPF 05/11/18 21:12 Salicylates < 0.3 mg/dL (2.8-20.0) L 05/11/18 16:21 Urine Opiates Screen Presumptive negative 05/11/18 21:12 Urine Methadone Screen Presumptive negative 05/11/18 21:12 Acetaminophen < 5.0 ug/mL (10.0-30.0) L 05/11/18 16:21 Ur Barbiturates Screen Presumptive negative 05/11/18 21:12 Ur Phencyclidine Scrn Presumptive negative 05/11/18 21:12 Ur Amphetamines Screen Presumptive negative 05/11/18 21:12 U Benzodiazepines Scrn Presumptive negative 05/11/18 21:12 Urine Cocaine Screen Presumptive negative 05/11/18 21:12 U Marijuana (THC) Screen Presumptive negative 05/11/18 21:12 Drugs of Abuse Note Disclamer 05/11/18 21:12 Plasma/Serum Alcohol 0.12 % (0-0.07) H 05/11/18 16:21
[2018-05-14] MEDS ORDERED: APRESOLINE IV PRN (19:29)
[2018-05-14] MEDS ORDERED: REMERON PO SCH (22:00)
[2018-05-14] MEDS: APRESOLINE PO SCH (22:41)
[2018-05-15 07:24] LABS: Basophils % (Auto) 0.9 % (0.0-1.8); Eosinophils # (Auto) 0.1 K/mm3 (0.0-0.4); Eosinophils % (Auto) 1.9 % (0.0-4.3); Hemoglobin 13.4 gm/dl (10.1-14.3); Mean Corpuscular HGB Conc 33 % (30-34); Mean Corpuscular Hemoglobin 35 pg (28-32); Mean Corpuscular Volume 106 fl (79-97); Monocytes # (Auto) 0.5 K/mm3 (0.0-0.8); Monocytes % (Auto) 10.8 % (0.0-7.3); Platelet Count 243 K/mm3 (140-440); Red Blood Count 3.77 M/mm3 (3.65-5.03); Red Cell Distribution Width 15.6 % (13.2-15.2)
[2018-05-15 07:33] LABS: Alanine Aminotransferase 75 units/L (7-56); Albumin 3.6 g/dL (3.9-5); BUN/Creatinine Ratio 22; Blood Urea Nitrogen 11 mg/dL (7-17); Calcium 9.8 mg/dL (8.4-10.2); Hemolysis Index 9
[2018-05-15] MEDS: APRESOLINE PO SCH (07:53)
--- NOTE | 2018-05-15 08:14 | Discharge Summary ---
Providers - Providers Date of Admission: 05/12/18 00:48 Date of discharge: 05/15/18 Attending physician: BISI MCINTYRE 05/12/18 04:56 psychiatry consult [Consult to Mental Health] [CONS] Routine Reason For Exam: depression Place consult to:: psych Notified:: patricia Phone number called:: [phone] Was contact made?: Yes If yes, spoke with:: patricia Time called:: 10:40 Primary care physician: [facility] Hospitalization Reason for admission: depression, alcohol intoxication, and withdrawal symptoms Condition: Stable Pertinent studies: Chest x-ray; no acute abnormality Hospital course: Very pleasant 47-year-old female patient with significant history of hypertension depression chronic alcohol use Was admitted through emergency room with alcohol intoxication, alcohol withdrawal symptoms. Patient also had symptoms of depression however denied suicidal thoughts or ideation, Patient was admitted to the hospital symptomatically managed, placed on CIWA protocol, Evaluated by psych, recommend outpatient behavioral health follow-up as well as was entry alcohol and drug rehabilitation, Patient's multiple electrolyte imbalances were corrected Today patient is comfortable no new complaints alert awake oriented 3 not in acute distress vital signs reviewed stable [id number] evaluation physical examination at time of discharge is unremarkable Patient counseled to quit alcohol intake verbalized understanding DC planning per case management, Case management has set up senior care placement since patient did not have a place to go and is homeless Patient is hemodynamically and clinically stable at the time of discharge, Case management to assist with DC planning Discharge diagnosis; --Chronic alcohol use --Alcohol withdrawal symptoms --Depression --Acute bronchitis --Hypertension --Hypomagnesemia; corrected --Hypokalemia; corrected Disposition: DC-01 TO HOME OR SELFCARE Time spent for discharge: 32 min Core Measure Documentation - Palliative Care Palliative Care/ Comfort Measures: Not Applicable - Core Measures Any of the following diagnoses?: none Exam - Constitutional Vitals: Temp Pulse Resp BP Pulse Ox 98.3 F 84 18 155/104 100 05/15/18 05:53 05/15/18 07:53 05/15/18 05:53 05/15/18 07:53 05/15/18 05:53 General appearance: Present: no acute distress, well-nourished - EENT Eyes: Present: PERRL, EOM intact - Neck Neck: Present: supple, normal ROM - Respiratory Respiratory effort: normal Respiratory: bilateral: diminished, negative: rales, rhonchi, wheezing - Cardiovascular Rhythm: regular Heart Sounds: Present: S1 & S2 - Extremities Extremities: no ischemia, No edema - Abdominal General gastrointestinal: Present: soft, non-tender, non-distended, normal bowel sounds - Integumentary Integumentary: Present: clear, warm - Musculoskeletal Musculoskeletal: strength equal bilaterally - Psychiatric Psychiatric: appropriate mood/affect, cooperative - Neurologic Neurologic: CNII-XII intact, moves all extremities Plan Activity: no restrictions Diet: regular Special Instructions: other (patient advised to quit alcohol intake) Additional Instructions: Strongly advised alcohol rehabilitation. Strongly advised to quit alcohol intake. Follow [facility] health in 2-3 days Follow up with: PRIMARY CARE, [Primary Care Provider] - 3-5 Days Prescriptions: Folic Acid [Folvite] 1 mg PO QDAY #30 tablet hydrALAZINE [Apresoline TAB] 25 mg PO Q8HR #90 tablet Thiamine [Vitamin B-1] 100 mg PO DAILY #30 tablet
[2018-05-15 09:00] VITALS: BP 128/95
== END 2018-05-15 08:55 | disposition home or self-care (01) | DRG 202 ==
LOC: ED 15:58 → 4A 05-12 00:48 → 3A 05-12 09:38
PROVIDERS: ADMIT Internal Medicine; ATTEND Internal Medicine
DX: J20.9 Acute bronchitis, unspecified (principal); F10.239 Alcohol dependence with withdrawal, unspecified; F32.9 Major depressive disorder, single episode, unspecified; I10 Essential (primary) hypertension; E83.42 Hypomagnesemia; E87.6 Hypokalemia; Y90.0 Blood alcohol level of less than 20 mg/100 ml; Z82.49 Family history of ischemic heart disease and other diseases of the circulatory system; Z71.41 Alcohol abuse counseling and surveillance of alcoholic; Z59.0 Homelessness; F10.229 Alcohol dependence with intoxication, unspecified
CPT/HCPCS: 36415; 71046; 80048; 80053; 80307; 80320; 81001; 83735; 84100; 84703; 85025; G0480; J0360; J1650; J2060; J2405; J3411; J3475; J3480; J7030

== ENCOUNTER 2018-05-15 10:10 | Emergency (ER) | payer OTHER ==
[2018-05-15] MEDS ORDERED: NACL 0.9% 1000 ML 1,000 ML IV ONE (13:27)
--- NOTE | 2018-05-15 13:27 | Emergency Department Report ---
HPI - General Chief Complaint: Medical Clearance Time Seen by Provider: 05/15/18 13:20 - HPI HPI: The patient is a 47-year-old female who presents for evaluation of mental health. The patient reports constant severe sadness and depression for greater than the past one week. The patient denies fever, headache, unexplained weight loss or weight gain, heat or cold intolerance, skin, hair, or nail changes, neuro deficits, suicidal ideations, homicidal ideations, or auditory or visual hallucinations. ED Past Medical Hx - Past Medical History Hx Hypertension: Yes Hx Congestive Heart Failure: No Hx Diabetes: No Hx Psychiatric Treatment: Yes (Depression) Hx Asthma: No Hx COPD: No Additional medical history: ETOH abuse - Social History Smoking Status: Never Smoker Substance Use Type: None - Medications Home Medications: Home Medications Medication Instructions Recorded Confirmed Last Taken Type traMADol [Ultram 50 MG tab] 50 mg PO Q6HR PRN #12 tablet 04/23/15 05/11/18 Unknown Rx Ondansetron [Zofran ODT TAB] 4 mg PO Q6HR PRN #20 tab.rapdis 05/04/15 05/11/18 Unknown Rx Ranitidine HCl [Zantac 150 MG TAB] 150 mg PO BID #60 tablet 05/04/15 05/11/18 Unknown Rx Folic Acid [Folvite] 1 mg PO QDAY #30 tablet 05/15/18 Unknown Rx Thiamine [Vitamin B-1] 100 mg PO DAILY #30 tablet 05/15/18 Unknown Rx hydrALAZINE [Apresoline TAB] 25 mg PO Q8HR #90 tablet 05/15/18 Unknown Rx ED Review of Systems ROS: Stated complaint: RE EVALUATED Other details as noted in HPI Constitutional: denies: fever ENT: denies: throat or neck pain Respiratory: denies: cough, shortness of breath Cardiovascular: denies: chest pain Endocrine: denies unexplained weight loss or gain Gastrointestinal: denies: abdominal pain, nausea Genitourinary: denies: dysuria Musculoskeletal: denies: leg swelling Skin: denies: rash Neurological: denies: headache Hematological/Lymphatic: denies: easy bleeding or easy bruising Psych: reports sadness and depression Physical Exam - Physical Exam Vital Signs: Vital Signs 05/15/18 10:18 Temperature 98.1 F Pulse Rate 124 H Respiratory 18 Rate Blood Pressure 104/56 O2 Sat by Pulse 100 Oximetry Physical Exam: General: well-nourished, well-developed, no acute distress Head: Normocephalic, atraumatic Eyes: normal sclera ENT: Mucous membranes are pink and moist Neck: trachea midline, neck supple, No neck stiffness, no cervical adenopathy Respiratory: Breath sounds equal bilaterally, no wheezing, rales, or rhonchi Cardio: S1 and S2 present, no murmurs, rubs, gallops, capillary refill is brisk Abdomen: Normoactive bowel sounds, soft abdomen, no rigidity, no guarding or rebound tenderness Musc: No pitting edema Skin: No rash Neuro: no facial drooping, normal speech Psych: Flat affect, depressed mood, normal behavior, no suicidal or homicidal ideations, no AV H ED Course Vital Signs 05/15/18 10:18 Temperature 98.1 F Pulse Rate 124 H Respiratory 18 Rate Blood Pressure 104/56 O2 Sat by Pulse 100 Oximetry ED Medical Decision Making - Lab Data Result diagrams: 05/15/18 13:28 05/15/18 13:28 - Medical Decision Making The patient was seen and examined by myself. The patient is placed on a wire temperer and continuous pulse ox. On initial evaluation, the patient was found to be in no distress. Labs are obtained. Lab results are grossly unremarkable. The patient is medically clear. Mental health is consulted. Mental health evaluates the patient and agrees that the patient is negative for signs or symptoms concerning for risk of harm to herself or others, or for acute psychosis. The patient was reevaluated and reported that their symptoms were improved. The patient is stable for discharge with outpatient follow-up. The patient is given follow-up and return instructions. The patient expressed understanding and agreed with the plan. The patient is discharged in stable condition. Critical care attestation.: If time is entered above; I have spent that time in minutes in the direct care of this critically ill patient, excluding procedure time. ED Disposition Clinical Impression: Dehydration Depression Qualifiers: Depression Type: unspecified Qualified Code(s): F32.9 - Major depressive disorder, single episode, unspecified Disposition: DC-01 TO HOME OR SELFCARE Is pt being admited?: No Does the pt Need Aspirin: No Condition: Stable Instructions: Depression (ED), Mood Disorders (ED) Referrals: PRIMARY CARE, [Primary Care Provider] - 3-5 Days [facility] [Outside] - 3-5 Days Time of Disposition: 16:58
[2018-05-15 13:54] LABS: Basophils % (Auto) 0.5 % (0.0-1.8); Eosinophils # (Auto) 0.1 K/mm3 (0.0-0.4); Eosinophils % (Auto) 1.4 % (0.0-4.3); Hematocrit 39.2 % (30.3-42.9); Hemoglobin 13.5 gm/dl (10.1-14.3); Lymphocytes # (Auto) 1.2 K/mm3 (1.2-5.4); Lymphocytes % (Auto) 24.3 % (13.4-35.0); Mean Corpuscular HGB Conc 34 % (30-34); Mean Corpuscular Hemoglobin 37 pg (28-32); Mean Corpuscular Volume 106 fl (79-97); Monocytes # (Auto) 0.6 K/mm3 (0.0-0.8); Monocytes % (Auto) 12.3 % (0.0-7.3); Platelet Count 233 K/mm3 (140-440); Red Cell Distribution Width 16.1 % (13.2-15.2)
[2018-05-15 14:10] LABS: BUN/Creatinine Ratio 20; Blood Urea Nitrogen 12 mg/dL (7-17); Hemolysis Index 10
[2018-05-15 17:03] VITALS: BP 135/89
== END 2018-05-15 17:45 | disposition home or self-care (01) ==
LOC: ED 10:10
DX: F32.9 Major depressive disorder, single episode, unspecified (principal); E86.0 Dehydration; I10 Essential (primary) hypertension
CPT/HCPCS: 36415; 80048; 84703; 85025; 99284; G0480; 80320

== ENCOUNTER 2021-09-10 07:06 | Emergency (ER) | payer SELFPAY ==
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
[2021-09-10 08:23] LABS: Hematocrit 43.2 % (30.3-42.9); Hemoglobin 14.2 gm/dl (10.1-14.3); Mean Corpuscular HGB Conc 33 % (30-34); Mean Corpuscular Volume 109 fl (79-97); Platelet Count 301 K/mm3 (140-440); Red Blood Count 3.97 M/mm3 (3.65-5.03); Red Cell Distribution Width 16.9 % (13.2-15.2)
[2021-09-10 08:29] LABS: Bilirubin,Urine NEG (Negative); Blood,Urine SM (Negative); Color,Urine Yellow (Yellow); Mucus,Urine 1+ /HPF; Urobilinogen,Urine < 2.0 mg/dL (<2.0)
[2021-09-10 08:40] LABS: Amphetamine Screen,Urine Negative; Benzodiazepines Screen,Urine Negative; Cannabinoid Screen,Urine Negative; Cocaine Screen,Urine Negative; Methadone Screen,Urine Negative; Opiate Screen,Urine Negative
[2021-09-10 08:43] LABS: BUN/Creatinine Ratio 27; Blood Urea Nitrogen 19 mg/dL (7-17); Calcium 8.6 mg/dL (8.4-10.2); Hemolysis Index 8
[2021-09-10 08:45] LABS: Alanine Aminotransferase 37 units/L (7-56); Albumin 4.3 g/dL (3.9-5)
[2021-09-10 08:46] LABS: Bilirubin,Direct < 0.2 mg/dL (0-0.2)
[2021-09-10 09:05] LABS: Platelet Estimate Consistent w Auto; RBC Morphology Normal; Total Cells Counted 100
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
[2021-09-10 15:20] VITALS: BP 109/71
== END 2021-09-10 14:45 | disposition home or self-care (01) ==
LOC: ED 07:06
DX: F10.129 Alcohol abuse with intoxication, unspecified (principal); F32.A Depression, unspecified; I10 Essential (primary) hypertension; Z79.899 Other long term (current) drug therapy
CPT/HCPCS: 36415; 80048; 80076; 80307; 80320; 81001; 82550; 84703; 85007; 85025; 87086; 99284; G0480